=== PATIENT | female | born 1995 | race Caucasian/White ===

== ENCOUNTER 2017-03-08 01:28 | Inpatient (IN) | payer BC ==
[~2017-03-08] VITALS: Ht 165.1 cm; Wt 52.6 kg
[2017-03-08] VITALS (10 sets, daily range): BP systolic 87–134; BP diastolic 38–76
[2017-03-08] MEDS ORDERED: Ketorolac 30mg Inj IV ONE (02:00)
[2017-03-08 02:05] LABS: APPEARANCE,URINE CLEAR; KETONES,URINE 1+ (NEGATIVE); LEUKOCYTE ESTERASE ,URINE 1+ (NEGATIVE); PH,URINE 5 (4.5-8.0); PROTEIN,URINE 1+ (NEGATIVE); UROBILINOGEN,URINE 4 MG/DL (0.0-1.0)
[2017-03-08 02:07] LABS: BASOPHILS % (AUTO) 0.8 % (0.0-2.0); EOSINOPHILS % (AUTO) 1.1 % (0.0-3.0); LYMPHOCYTES % (AUTO) 20.8 % (20.0-45.0); MEAN CORPUSCULAR HEMOGLOBIN 31.5 PG (27.0-31.0); MEAN CORPUSCULAR HGB CONC 33.9 G/DL (32.0-36.0); MEAN CORPUSCULAR VOLUME 93 FL (80-99); MEAN PLATELET VOLUME 7.2 FL (6.5-10.1); MONOCYTES % (AUTO) 7.7 % (1.0-10.0); NEUTROPHILS % (AUTO) 69.6 % (45.0-75.0); PLATELET COUNT 282 K/UL (150-450); RED BLOOD COUNT 3.66 M/UL (4.20-5.40); RED CELL DISTRIBUTION WIDTH 11.2 % (11.6-14.8); WHITE BLOOD COUNT 7.4 K/UL (4.8-10.8)
--- NOTE | 2017-03-08 02:09 | Emergency Room Report ---
History of Present Illness General Chief Complaint: Vomiting Source: Patient Present Illness HPI This is a 21-year-old female with history of recurrent urinary tract infection. She is seen a urologist already. She is currently taking Bactrim prescribed by a urologist. Also using radium. She presents with chief complaint of lower number cramp with vomiting for the last couple days. No fever or chills but now and diarrhea. No back pain. Pain is 5/10. Allergies: Coded Allergies: PROCHLORPERAZINE (Verified Allergy, Unknown, 03/08/17) Patient History Past Medical History: see triage record, old chart reviewed Past Surgical History: none Pertinent Family History: none Social History: Denies: smoking Last Menstrual Period: 2 weeks ago Now: No Immunizations: other Reviewed Nursing Documentation: PMH: Agreed, PSxH: Agreed Review of Systems Eye: Denies: blurred vision, eye pain ENT: Denies: ear pain, nose congestion, throat swelling Respiratory: Denies: cough, shortness of breath Cardiovascular: Denies: chest pain, palpitations Gastrointestinal: Reports: abdominal pain, nausea, vomiting, Denies: diarrhea Musculoskeletal: Denies: back pain, joint pain Skin: Denies: rash Neurological: Denies: headache, numbness Endocrine: Denies: increased thirst, increased urine Hematologic/Lymphatic: Denies: easy bruising All Other Systems: negative except mentioned in HPI Physical Exam Vital Signs Date Time Temp Pulse Resp B/P Pulse Ox O2 Delivery O2 Flow Rate FiO2 03/08/17 01:32 97.9 92 18 116/70 97 vital normal Sp02 EP Interpretation: reviewed, normal General Appearance: well appearing, no apparent distress, alert Head: normocephalic, atraumatic Eyes: bilateral eye EOMI, bilateral eye PERRL ENT: hearing grossly normal, normal pharynx Neck: full range of motion, supple, no meningismus Respiratory: chest non-tender, lungs clear, normal breath sounds Cardiovascular #1: regular rate, rhythm, no murmur Gastrointestinal: normal bowel sounds, non tender, no mass, no organomegaly, no bruit, non-distended Musculoskeletal: back normal, gait/station normal, normal range of motion Psychiatric: mood/affect normal Skin: warm/dry Medical Decision Making Diagnostic Impression: Primary Impression: Vomiting Qualified Codes: R11.2 - Nausea with vomiting, unspecified Additional Impressions: Acute kidney failure Qualified Codes: N17.9 - Acute kidney failure, unspecified UTI (urinary tract infection) Qualified Codes: N30.00 - Acute cystitis without hematuria Anemia Qualified Codes: D64.9 - Anemia, unspecified Proteinuria Qualified Codes: R80.9 - Proteinuria, unspecified ER Course She presents with protracted vomiting. She has acute renal failure. She does have a history of recurrent UTI. Currently taking Bactrim. There still bacteria and possible infection. Is concerning for resistant UTI. We'll switch antibiotic class. She is making urine. Because of the acute renal failure, will admit for hydration and further workup. She is already seen by [facility] [place]. Laboratory Tests Test 03/08/17 01:50 White Blood Count 7.4 K/UL (4.8-10.8) Red Blood Count 3.66 M/UL (4.20-5.40) L Hemoglobin 11.5 G/DL (12.0-16.0) L Hematocrit 34.0 % (37.0-47.0) L Mean Corpuscular Volume 93 FL (80-99) Mean Corpuscular Hemoglobin 31.5 PG (27.0-31.0) H Mean Corpuscular Hemoglobin Concent 33.9 G/DL (32.0-36.0) Red Cell Distribution Width 11.2 % (11.6-14.8) L Platelet Count 282 K/UL (150-450) Mean Platelet Volume 7.2 FL (6.5-10.1) Neutrophils (%) (Auto) 69.6 % (45.0-75.0) Lymphocytes (%) (Auto) 20.8 % (20.0-45.0) Monocytes (%) (Auto) 7.7 % (1.0-10.0) Eosinophils (%) (Auto) 1.1 % (0.0-3.0) Basophils (%) (Auto) 0.8 % (0.0-2.0) Urine Color [place] Urine Appearance Clear Urine pH 5 (4.5-8.0) Urine Specific [place] 1.020 (1.005-1.035) Urine Protein 1+ (NEGATIVE) H Urine Glucose (UA) Negative (NEGATIVE) Urine Ketones 1+ (NEGATIVE) H Urine Occult Blood 1+ (NEGATIVE) H Urine Nitrite Negative (NEGATIVE) Urine Bilirubin 2+ (NEGATIVE) H Urine Ictotest Positive Urine Urobilinogen 4 MG/DL (0.0-1.0) H Urine Leukocyte Esterase 1+ (NEGATIVE) H Urine RBC 0-2 /HPF (0 - 2) Urine WBC 10-15 /HPF (0 - 2) H Urine Squamous Epithelial Cells Many /LPF (NONE/OCC) H Urine Bacteria Few /HPF (NONE) Urine HCG, Qualitative Negative Sodium Level 137 mEQ/L (135-145) Potassium Level 3.9 mEQ/L (3.4-4.9) Chloride Level 95 mEQ/L (98-107) L Carbon Dioxide Level 22 mEQ/L (20-30) Anion Gap 20 (5-15) H Blood Urea Nitrogen 30 mg/dL (7-23) H Creatinine 2.9 mg/dL (0.5-0.9) H Estimat Glomerular Filtration Rate 20.9 mL/min (>60) Glucose Level 96 mg/dL (74-106) Calcium Level 10.1 mg/dL (8.6-10.2) Total Bilirubin 1.0 mg/dL (0.0-1.2) Aspartate Amino Transf (AST/SGOT) 18 U/L (5-40) Alanine Aminotransferase (ALT/SGPT) 9 U/L (3-33) Alkaline Phosphatase 57 U/L (35-104) Total Protein 8.0 g/dL (6.6-8.7) Albumin 4.8 g/dL (3.5-5.2) Globulin 3.2 g/dL Albumin/Globulin Ratio 1.5 (1.0-2.7) Lipase 25 U/L (< 60) Lab Results Impression labs with acute renal failure Last Vital Signs Date Time Temp Pulse Resp B/P Pulse Ox O2 Delivery O2 Flow Rate FiO2 03/08/17 01:32 97.9 92 18 116/70 97 Status: improved Disposition: ADMITTED INPATIENT Condition: Serious CHARY ETIENNE M.D. Mar 08, 2017 02:09
[2017-03-08 02:13] LABS: NITRITE,URINE NEGATIVE (NEGATIVE)
[2017-03-08 02:14] LABS: BACTERIA,URINE FEW /HPF; RBC,URINE 0-2 /HPF (0 - 2); SQUAMOUS EPITHELIAL CELL,UR MANY /LPF (NONE/OCC)
[2017-03-08 02:15] LABS: ICTOTEST POSITIVE
[2017-03-08 02:18] LABS: ALBUMIN/GLOBULIN RATIO 1.5 (1.0-2.7); CALCIUM 10.1 mg/dL (8.6-10.2); CREATININE 2.9 mg/dL (0.5-0.9); GLOMERULAR FILTRATION RATE 20.9 mL/min (>60); POTASSIUM 3.9 mEQ/L (3.4-4.9)
[2017-03-08] MEDS ORDERED: cefTRIAXone 1 GM in NS 55 ML IVPB ONE (02:30)
[2017-03-08] MEDS ORDERED: Morphine Sulfate 4mg/ml Inj IVP PRN (11:00)
--- NOTE | 2017-03-08 11:00 | History & Physical ---
History and Physical History & Physicial Dictated for Int Med-Dr Rodriguez no. [id number]. TERESA SETH Mar 08, 2017 11:00
[2017-03-08] MEDS ORDERED: Morphine Sulfate 2mg/ml Inj IVP PRN (11:15)
--- NOTE | 2017-03-08 11:30 | Consultation ---
Consult Note Assessment/Plan Renal consult dictated # [id number] KATHY FINN Mar 08, 2017 11:30
--- NOTE | 2017-03-08 17:18 | History and Physical Report ---
DATE OF ADMISSION: 03/08/2017 CHIEF COMPLAINT: The patient is a 21-year-old white female, presents with complaint of intractable nausea and vomiting. HISTORY OF PRESENT ILLNESS: The patient was seen by Urology on , 03/04/2017. The patient was diagnosed with a urinary tract infection. The patient was given Bactrim double strength one tablet p.o. twice daily. The patient was also given Zofran for nausea and vomiting. The patient states nausea and vomiting has not resolved. The patient is unable to tolerate liquids or solids. The patient also complains of some diarrhea. The patient presented to [facility]. The patient is admitted for urinary tract infection, nausea, vomiting, and pyelonephritis. PAST MEDICAL HISTORY: The patient states her last menstrual period was two weeks ago. PAST SURGICAL HISTORY: Significant for nasal rhinoplasty. MEDICATIONS: Current medications 1. Bactrim double strength one tablet p.o. twice daily since 03/04/2017. 2. Zofran p.r.n. 3. Advil p.r.n. ALLERGIES: Compazine. SOCIAL HISTORY: The patient has a long-term boyfriend. The patient denies tobacco use. The patient has rare alcohol use. The patient is a student in [employer]. FAMILY HISTORY: Negative for diabetes or coronary artery disease. REVIEW OF SYSTEMS: Constitutional: The patient denies weight loss or weight gain. The patient complains of subjective fevers and chills. HEENT: The patient denies ear or throat pain. The patient denies headache. Cardiovascular: The patient denies palpitations or chest pain. Chest: The patient denies wheezing or shortness of breath. Abdomen: The patient complains of bilateral lower quadrant pain. The patient complains of nausea with vomiting as above. The patient complains of loose stools. The patient denies constipation. Genitourinary: The patient denies dysuria or increased frequency of urination. Neuromuscular: The patient denies seizures or generalized weakness. PHYSICAL EXAMINATION: VITAL SIGNS: Temperature 98.0 degrees, respirations 17, pulse 78, and blood pressure 112/76. GENERAL: The patient is a well-developed and well-nourished thin-appearing white female, in no apparent distress. HEENT: Eyes, pupils are equal and responsive to light and accommodation. Extraocular movements are intact. NECK: Supple without lymphadenopathy. CHEST: Lungs are clear auscultation bilaterally without wheezes or rales. CARDIOVASCULAR: Regular rhythm and rate. S1 and S2 normal. No murmurs, rubs, or gallops. ABDOMEN: Soft and nondistended. Positive bowel sounds. There is tenderness to palpation to bilateral lower quadrants. There is no rebound or guarding. EXTREMITIES: No clubbing, cyanosis, or edema. RECTAL: Refused. GENITAL: Refused. NEUROLOGIC: Cranial nerves II through XII are grossly intact without focal deficits. Motor strength is 5/5 bilaterally. Deep tendon reflexes are 2+ plantar. LABORATORY AND DIAGNOSTIC DATA: WBC 7.4, hemoglobin 11.5, hematocrit 34.0, and platelets 292,000. Sodium 137, potassium 3.9, chloride 95, CO2 22, BUN 38, creatinine 2.9 and glucose 96. Urinalysis showed 1+ ketones, 1+ occult blood, and 2+ bilirubin, leukocyte esterase 1+, and nitrite negative with 10-15 WBC. ASSESSMENT: This is a 21-year-old white female 1. Nausea with vomiting. 2. Abdominal pain. 3. Diarrhea. 4. Renal failure. 5. Urinary tract infection. 6. Probable pyelonephritis. TREATMENT: 1. Renal failure. A Nephrology consultation was obtained with Dr. Chidi Salvador. A renal ultrasound is pending. Renal failure may be secondary to Bactrim for pyelonephritis. We will follow recommendations of Nephrology. 2. Urinary tract infection. Urine culture is pending. The patient has been started empirically on ceftriaxone. We will follow recommendations of Infectious Disease, Dr. Emanuel. 3. Nausea with vomiting. The patient is currently receiving Zofran intravenously. The patient is currently on intravenous fluids. 4. Dehydration. The patient is currently on intravenous fluids as above. Ryley Mirza M.D. DR: WHITNEY JOB#: [id number] CC:
[2017-03-08] MEDS ORDERED: Trimethobenzamide 100mg/ml vial IM PRN (18:00)
--- NOTE | 2017-03-08 18:08 | Consultation ---
DATE OF CONSULTATION: 03/08/2017 NEPHROLOGY CONSULTATION CONSULTING PHYSICIAN: Chidi Salvador M.D. REFERRING PHYSICIAN: Jesús Mar M.D. REASON FOR CONSULTATION: Acute renal failure. HISTORY OF PRESENT ILLNESS: This is a very pleasant, 21-year-old female with a history of recurrent urinary tract infection. The patient said that she has had about seven UTIs since March of last year. She stated that the UTI started after she got into a relationship with a boyfriend and it usually happens when she has intercourse. She had also once "kidney infection," which was treated at an urgent care clinic with IV antibiotics, but she did not require hospitalization. For the past three days, she has had symptoms of urgency, frequency, and dysuria and was prescribed Bactrim by urologist, however, it did not work and she still had complaints, especially she had nausea and vomiting to the degree where she cannot keep anything down. So, she came to the emergency room and was admitted. She was found to have a BUN of 30 and creatinine 2.9 upon admission. She denies previous history of the kidney problems except the kidney infection. PAST MEDICAL HISTORY: As above. SOCIAL HISTORY: The patient lives with a boyfriend. No history of smoking or alcohol abuse. ALLERGIES: Compazine (the patient is intolerant, getting panic attacks). REVIEW OF SYSTEMS: Noncontributory except what was mentioned. PHYSICAL EXAMINATION: GENERAL: The patient is a 21-year-old female, in no acute distress. VITAL SIGNS: Blood pressure is 87/38, pulse 76, temperature 97.9, and respiratory rate is 18. HEENT: [place] conjunctivae. Anicteric sclerae. NECK: Supple. LUNGS: Clear to auscultation. HEART: S1 and S2 without murmurs or rubs. ABDOMEN: Soft and nontender. The patient has some mild CVA tenderness on the right side. EXTREMITIES: No cyanosis or edema. LABORATORY FINDINGS: The CBC shows WBC of 7.4, hematocrit 34, hemoglobin 11.5, and platelets 282,000. Chemistry panel shows serum sodium of 137, potassium 3.9, chloride 95, CO2 22, BUN is 30, and creatinine 2.9. Albumin is 4.8. UA shows 1+ protein, 10 to 15 WBCs per high-power field. ASSESSMENT: This is a 21-year-old female who was admitted with urinary tract infection, intractable nausea and vomiting. Acute renal failure is likely as a result of prerenal azotemia. However, she is running low blood pressure. So, acute tubular necrosis is a possibility as well. Finally, we have to make sure the patient does not have any structural abnormality of her kidneys and obstruction needs to be ruled out as well. PLAN: The patient will be hydrated aggressively with IV normal saline. A spot urine sodium and spot urine creatinine will be obtained to calculate the fractional excretion of sodium. A renal ultrasound will be ordered to rule out obstruction. I will follow chemistry panel closely and make further recommendations based on those results. Thank you very much, Dr. mar, for this consultation. Chidi Salvador M.D. DR: HEAVEN JOB#: [id number] CC: GREGORY
[2017-03-08] MEDS ORDERED: HYDROmorphone 1mg/ml Carpuject IVP PRN (18:15)
[2017-03-08 18:33] LABS: CREATININE, RANDOM URINE 90.9 mg/dL
--- NOTE | 2017-03-08 21:28 | Consultation ---
DATE OF CONSULTATION: 03/08/2017 INFECTIOUS DISEASE CONSULTATION CONSULTING PHYSICIAN: Cailin Emanuel M.D. ATTENDING PHYSICIAN: Jesús Rodriguez M.D. REFERRING PHYSICIAN: Ryley Mirza M.D. I was asked by Dr. Mirza to see this patient. I believe he is covering for Dr. Rodriguez. REASON FOR CONSULTATION: Pyelonephritis and UTI. PATIENT'S CHIEF COMPLAINT COMING INTO THE HOSPITAL: Urinary tract infection and pyelonephritis. HISTORY OF PRESENT ILLNESS: This is a very pleasant 21-year-old female who has a history of urinary tract infections and usually sounds like she had been treated with Bactrim in the past with success. However, she presents now with about a week of dysuria and frequency and urgency and left CVA tenderness. She has some abdominal discomfort also in the mid and lower abdomen. The patient's urinalysis is significantly positive for consistent with urinary tract infection. Urine culture is pending. She has been started on IV Rocephin with improvement in symptoms less than 24 hours ago. Infectious Disease consultation was requested with antibiotic management of this patient. MAR was noted. Orders were noted. Notes reviewed. REVIEW OF SYSTEMS: Constitutional: She denies fevers, chills, night sweats, or weight loss. Head and Neck: No thrush or dysphagia. Cardiac: No chest pain. Gastrointestinal: No nausea or vomiting. She has abdominal discomfort in the mid and lower abdomen. Genitourinary: She had dysuria and frequency. Skin: No rash or itching. Extremities: No extremity pain. Neurologic: No seizures. Pulmonary: No congestion or shortness of breath. PAST MEDICAL HISTORY: History of urinary tract infections in the past, however, no other past medical history such as diabetes or hypertension. ALLERGIES: Prochlorperazine. FAMILY HISTORY: Noncontributory. SOCIAL HISTORY: Negative for smoking, alcohol, or drug abuse. MEDICATIONS: Upon reviewing the MAR, the patient is on the following medications. She is on Rocephin, morphine, IV fluids, sodium, Tylenol, and Zofran. Please see medications and past medical history in medical order. PHYSICAL EXAMINATION: VITAL SIGNS: Temperature is 97.9, pulse rate 76, respiratory rate 18, and blood pressure 87/38. GENERAL: Alert, responsive, in no acute distress. She is oriented x3. HEAD AND NECK: Oral exam, no thrush. Eye exam, no icterus. Neck is supple. Normocephalic. No facial droop. HEART: Regular. No gallop or murmur. No friction rub. ABDOMEN: Soft. Positive bowel sounds. Some discomfort, but no rebound. LUNGS: Clear bilaterally. No rhonchi or rales. SKIN: No rash or dermatitis. MUSCULOSKELETAL: No evidence of septic arthritis or effusions. Lower extremities without cellulitis . EXTREMITIES: Without cyanosis. GENITOURINARY: She has no [place]. She has left-sided CVA tenderness. LINES: Line sites are without phlebitis. NEUROLOGIC: Intact. Nonfocal. Alert and oriented x3. LABORATORY DATA: White count 7.4 and hemoglobin 11.5. The patient's creatinine is 2.9. LFTs are unremarkable. BUN is elevated at 30. Urinalysis, she had 2+ bilirubin, she had 10 to 15 white blood cells, and she had positive bacteria, but only a few. Urine hCG was negative. Urine culture is pending. ASSESSMENT AND PLAN: 1. The patient has likely pyelonephritis with left costovertebral angle tenderness and also, of course, urinary tract infection. The patient will be continued on Rocephin. Her symptoms have really improved. Continue Rocephin. Check urine culture results. The patient was on Bactrim prior to this admission and it did not improve her symptoms. At this time, we will continue Rocephin, check urine cultures, and check followup labs. 2. Avoid nephrotoxic drugs. The patient is in acute renal failure, likely secondary to prerenal syndrome and dehydration. 3. History of urinary tract infections. 4. Continue treatment per primary consultants including Nephrology. 5. Allergies to prochlorperazine. 6. MAR was noted. 7. Notes are reviewed. 8. Case discussed with RN. 9. Case discussed with the patient. 10. Social history and family history are unremarkable. Cailin Emanuel M.D. DR: ARSALAN JOB#: [id number] CC: Jesús Rodriguez MD
[2017-03-09] VITALS: BP 114/52
[2017-03-09] MEDS: cefTRIAXone 1 GM in NS 55 ML IVPB SCH (02:35)
[2017-03-09 04:00] VITALS: BP 100/60
[2017-03-09 06:52] LABS: BASOPHILS % (AUTO) 1.2 % (0.0-2.0); LYMPHOCYTES % (AUTO) 54.1 % (20.0-45.0); MEAN CORPUSCULAR VOLUME 97 FL (80-99); MEAN PLATELET VOLUME 7.6 FL (6.5-10.1); MONOCYTES % (AUTO) 7.6 % (1.0-10.0); NEUTROPHILS % (AUTO) 35.1 % (45.0-75.0); PLATELET COUNT 202 K/UL (150-450); RED BLOOD COUNT 2.98 M/UL (4.20-5.40); RED CELL DISTRIBUTION WIDTH 11.8 % (11.6-14.8); WHITE BLOOD COUNT 5.7 K/UL (4.8-10.8)
[2017-03-09 07:01] LABS: CALCIUM 8.9 mg/dL (8.6-10.2); CREATININE 1.2 mg/dL (0.5-0.9); GLOMERULAR FILTRATION RATE 57.9 mL/min (>60); POTASSIUM 4.3 mEQ/L (3.4-4.9)
[2017-03-09 08:00] VITALS: BP 105/67
[2017-03-09] MEDS ORDERED: Norco 10mg/325mg tab ORAL PRN (10:00)
[2017-03-09 12:37] VITALS: BP 103/67
--- NOTE | 2017-03-09 15:54 | Nephrology Progress Note ---
Assessment/Plan Problem List: (1) Acute kidney failure Assessment: Improved (2) Vomiting (3) UTI (urinary tract infection) (4) Anemia Plan IVF abxs Iron panel GI consult Discussed with pt and family at length check renal US Subjective Subjective still vomiting Objective Objective Last 24 Hour Vital Signs Date Time Temp Pulse Resp B/P Pulse Ox O2 Delivery O2 Flow Rate FiO2 03/09/17 12:37 97.7 20 103/67 100 Room Air 03/09/17 11:22 97.5 03/09/17 08:00 97.5 18 105/67 98 Room Air 03/09/17 04:00 97.7 72 18 100/60 97 Room Air 03/09/17 00:00 98.1 72 18 114/52 97 Room Air 03/08/17 22:00 98.1 81 18 123/68 95 Room Air 03/08/17 20:00 98.1 81 18 123/68 95 Room Air 03/08/17 16:02 97.7 74 18 134/55 98 Intake and Output 03/08/17 03/09/17 19:00 07:00 Intake Total 480 ml 1310 ml Balance 480 ml 1310 ml Intake Oral 480 ml IV Total 1310 ml # Voids 2 Laboratory Tests 03/09/17 05:50: White Blood Count 5.7, Red Blood Count 2.98L, Hemoglobin 9.5L, Hematocrit 28.8L , Mean Corpuscular Volume 97, Mean Corpuscular Hemoglobin 32.0H, Mean Corpuscular Hemoglobin Concent 33.0, Red Cell Distribution Width 11.8, Platelet Count 202, Mean Platelet Volume 7.6, Neutrophils (%) (Auto) 35.1L, Lymphocytes ( %) (Auto) 54.1H, Monocytes (%) (Auto) 7.6, Eosinophils (%) (Auto) 2.0, Basophils (%) (Auto) 1.2, Sodium Level 142, Potassium Level 4.3, Chloride Level 107, Carbon Dioxide Level 22, Anion Gap 13, Blood Urea Nitrogen 11, Creatinine 1.2#H, Estimat Glomerular Filtration Rate 57.9, Glucose Level 71L, Calcium Level 8.9 Height (Feet): 5 Height (Inches): 5.00 Weight (Pounds): 116 Cardiovascular: normal rate Respiratory/Chest: lungs clear Abdomen: other - still with L CVA tenderness RAHBAN,KATHY Mar 09, 2017 15:54
[2017-03-09 16:11] VITALS: BP 115/58
--- NOTE | 2017-03-09 16:43 | Internal Med Progress Note ---
Subjective Date of Service: Mar 09, 2017 Physician Name Ryley Seth Attending Physician Jesús Rodriguez M.D. Current Medications Medications (Trade) Dose Ordered Sig/Tyson Route PRN Reason Start Time Stop Time Status Last Admin Dose Admin Acetaminophen (Tylenol) 650 mg Q4H PRN ORAL Mild Pain (Pain Scale 1-3) 03/08/17 03:30 04/07/17 03:29 03/08/17 23:54 Acetaminophen/ Hydrocodone Bitart (M[place] ) 1 ea Q4H PRN ORAL Pain 4-10 03/09/17 10:00 03/16/17 09:59 03/09/17 10:23 Ceftriaxone Sodium 1 gm/ Sodium Chloride 55 ml @ 110 mls/hr Q24H IVPB 03/09/17 02:30 03/16/17 02:29 03/09/17 02:35 Dextrose STAT PRN IV Hypoglycemia 03/08/17 03:30 04/07/17 03:29 Ondansetron HCl (Zofran) 4 mg Q4H PRN IVP Nausea & Vomiting 03/08/17 03:30 04/07/17 03:29 03/08/17 17:10 Sodium Chloride (Sodium Chloride 1000ml bag) 1,000 ml @ 150 mls/hr Q6H40M IV 03/08/17 11:00 04/07/17 10:59 03/09/17 09:31 Trimethobenzamide HCl (Tigan) 200 mg Q6HR PRN IM Nausea & Vomiting 03/08/17 18:00 04/07/17 17:59 Allergies: Coded Allergies: PROCHLORPERAZINE (Verified Allergy, Unknown, 03/08/17) ROS Limited/Unobtainable: No Constitutional: Reports: no symptoms HEENT: Reports: no symptoms Cardiovascular: Reports: no symptoms Respiratory: Reports: no symptoms Gastrointestinal/Abdominal: Reports: nausea, vomiting Genitourinary: Reports: no symptoms Neurologic/Psychiatric: Reports: no symptoms Subjective 21 YO F admitted with abdominal pain and urinary tract infection. Now pyelonephritis, renal failure and intractable nausea. Cover for Int Med-Dr Rodriguez. Objective Last Vital Signs Date Time Temp Pulse Resp B/P Pulse Ox O2 Delivery O2 Flow Rate FiO2 03/09/17 16:11 98.1 18 115/58 97 Room Air 03/09/17 04:00 72 Laboratory Tests Test 03/09/17 05:50 White Blood Count 5.7 K/UL (4.8-10.8) Red Blood Count 2.98 M/UL (4.20-5.40) L Hemoglobin 9.5 G/DL (12.0-16.0) L Hematocrit 28.8 % (37.0-47.0) L Mean Corpuscular Volume 97 FL (80-99) Mean Corpuscular Hemoglobin 32.0 PG (27.0-31.0) H Mean Corpuscular Hemoglobin Concent 33.0 G/DL (32.0-36.0) Red Cell Distribution Width 11.8 % (11.6-14.8) Platelet Count 202 K/UL (150-450) Mean Platelet Volume 7.6 FL (6.5-10.1) Neutrophils (%) (Auto) 35.1 % (45.0-75.0) L Lymphocytes (%) (Auto) 54.1 % (20.0-45.0) H Monocytes (%) (Auto) 7.6 % (1.0-10.0) Eosinophils (%) (Auto) 2.0 % (0.0-3.0) Basophils (%) (Auto) 1.2 % (0.0-2.0) Sodium Level 142 mEQ/L (135-145) Potassium Level 4.3 mEQ/L (3.4-4.9) Chloride Level 107 mEQ/L (98-107) Carbon Dioxide Level 22 mEQ/L (20-30) Anion Gap 13 (5-15) Blood Urea Nitrogen 11 mg/dL (7-23) Creatinine 1.2 mg/dL (0.5-0.9) #H Estimat Glomerular Filtration Rate 57.9 mL/min (>60) Glucose Level 71 mg/dL (74-106) L Calcium Level 8.9 mg/dL (8.6-10.2) Microbiology Date/Time Source Procedure Growth Status 03/08/17 01:50 Urine,Clean Catch Urine Culture - Preliminary NO GROWTH AFTER 24 HOURS Resulted Intake and Output 03/08/17 03/09/17 19:00 07:00 Intake Total 480 ml 1310 ml Balance 480 ml 1310 ml Intake Oral 480 ml IV Total 1310 ml # Voids 2 Objective General: alert, cooperative, no distress, appears stated age Head: normocephalic, without obvious abnormality, atraumatic Eyes: conjunctivae/corneas clear. PERRL, EOM's intact Throat: lips, mucosa, and tongue normal. MMM Neck: supple, symmetrical, trachea midline, and no JVD Lungs: clear to auscultation bilaterally Heart: regular rate and rhythm, S1, S2 normal, no murmur, click, rub or gallop Abdomen: soft, tender to palp, non-distended, bowel sounds normal; no masses or organomegaly Extremities: extremities normal, atraumatic, no cyanosis or edema Pulses: 2+ and symmetric Skin: skin color, texture, turgor normal; no rashes or lesions Neurologic: grossly normal, no focal deficits Assessment/Plan Problem List: (1) Abdominal pain (2) Nausea & vomiting Assessment & Plan: Intractable. Previously on zofran and phenergan. Allergic to compazine. Tigan not effective. Await GI consult. (3) Diarrhea (4) Renal failure Assessment & Plan: Dehydration vs ATN. Improving on IV fluids. See nephrology note. Ultrasound not functioning today-await renal ultrasoud. (5) Pyelonephritis Assessment & Plan: See ID note. Continue ceftriaxone. (6) Dehydration (7) UTI (urinary tract infection) Assessment & Plan: Urine culture = no growth Status: not improved RYLEY SETH Mar 09, 2017 16:43
[2017-03-09 20:00] VITALS: BP 115/62
[2017-03-10] VITALS: BP 122/69
[2017-03-10] MEDS: cefTRIAXone 1 GM in NS 55 ML IVPB SCH (02:10)
[2017-03-10 04:00] VITALS: BP 110/62
[2017-03-10 07:19] LABS: BASOPHILS % (AUTO) 0.9 % (0.0-2.0); LYMPHOCYTES % (AUTO) 48.8 % (20.0-45.0); MEAN CORPUSCULAR HEMOGLOBIN 31.7 PG (27.0-31.0); MEAN CORPUSCULAR HGB CONC 33.5 G/DL (32.0-36.0); MEAN CORPUSCULAR VOLUME 95 FL (80-99); MEAN PLATELET VOLUME 7.6 FL (6.5-10.1); MONOCYTES % (AUTO) 5.8 % (1.0-10.0); NEUTROPHILS % (AUTO) 42.4 % (45.0-75.0); PLATELET COUNT 201 K/UL (150-450); RED BLOOD COUNT 2.91 M/UL (4.20-5.40); RED CELL DISTRIBUTION WIDTH 11.1 % (11.6-14.8); WHITE BLOOD COUNT 5.9 K/UL (4.8-10.8)
[2017-03-10 07:23] LABS: ANION GAP 13 (5-15); CALCIUM 8.2 mg/dL (8.6-10.2); CARBON DIOXIDE 21 mEQ/L (20-30); CHLORIDE 105 mEQ/L (98-107); CREATININE 0.7 mg/dL (0.5-0.9); GLOMERULAR FILTRATION RATE > 60 mL/min (>60); HEMOLYSIS 5; POTASSIUM 3.6 mEQ/L (3.4-4.9); SODIUM 139 mEQ/L (135-145)
[2017-03-10 07:42] VITALS: BP 103/54
[2017-03-10 08:03] LABS: HEMOLYSIS 3; IRON 105 ug/dL (37-145); TOTAL IRON BINDING CAPACITY 174 ug/dL (250-400)
[2017-03-10 12:00] VITALS: BP 126/73
--- NOTE | 2017-03-10 12:06 | Internal Med Progress Note ---
Subjective Date of Service: Mar 10, 2017 Physician Name Ryley Seth Attending Physician Jesús Rodriguez M.D. Current Medications Medications (Trade) Dose Ordered Sig/Tyson Route PRN Reason Start Time Stop Time Status Last Admin Dose Admin Acetaminophen (Tylenol) 650 mg Q4H PRN ORAL Mild Pain (Pain Scale 1-3) 03/08/17 03:30 04/07/17 03:29 03/08/17 23:54 Acetaminophen/ Hydrocodone Bitart ([place] ) 1 ea Q4H PRN ORAL Pain 4-10 03/09/17 10:00 03/16/17 09:59 03/09/17 10:23 Ceftriaxone Sodium 1 gm/ Sodium Chloride 55 ml @ 110 mls/hr Q24H IVPB 03/09/17 02:30 03/16/17 02:29 03/10/17 02:10 Dextrose STAT PRN IV Hypoglycemia 03/08/17 03:30 04/07/17 03:29 Ondansetron HCl (Zofran) 4 mg Q4H PRN IVP Nausea & Vomiting 03/08/17 03:30 04/07/17 03:29 03/08/17 17:10 Sodium Chloride (Sodium Chloride 1000ml bag) 1,000 ml @ 150 mls/hr Q6H40M IV 03/08/17 11:00 04/07/17 10:59 03/10/17 11:10 Trimethobenzamide HCl (Tigan) 200 mg Q6HR PRN IM Nausea & Vomiting 03/08/17 18:00 04/07/17 17:59 Allergies: Coded Allergies: PROCHLORPERAZINE (Verified Allergy, Unknown, 03/08/17) ROS Limited/Unobtainable: No Constitutional: Reports: no symptoms HEENT: Reports: no symptoms Cardiovascular: Reports: no symptoms Respiratory: Reports: no symptoms Gastrointestinal/Abdominal: Reports: no symptoms Genitourinary: Reports: no symptoms Neurologic/Psychiatric: Reports: no symptoms Subjective 21 YO F admitted with abdominal pain and urinary tract infection. Now pyelonephritis, renal failure and intractable nausea. Cover for Int Med-Dr Rodriguez. Objective Last Vital Signs Date Time Temp Pulse Resp B/P Pulse Ox O2 Delivery O2 Flow Rate FiO2 03/10/17 07:42 97.7 61 20 103/54 93 Room Air Laboratory Tests Test 03/10/17 05:20 White Blood Count 5.9 K/UL (4.8-10.8) Red Blood Count 2.91 M/UL (4.20-5.40) L Hemoglobin 9.2 G/DL (12.0-16.0) L Hematocrit 27.6 % (37.0-47.0) L Mean Corpuscular Volume 95 FL (80-99) Mean Corpuscular Hemoglobin 31.7 PG (27.0-31.0) H Mean Corpuscular Hemoglobin Concent 33.5 G/DL (32.0-36.0) Red Cell Distribution Width 11.1 % (11.6-14.8) L Platelet Count 201 K/UL (150-450) Mean Platelet Volume 7.6 FL (6.5-10.1) Neutrophils (%) (Auto) 42.4 % (45.0-75.0) L Lymphocytes (%) (Auto) 48.8 % (20.0-45.0) H Monocytes (%) (Auto) 5.8 % (1.0-10.0) Eosinophils (%) (Auto) 2.0 % (0.0-3.0) Basophils (%) (Auto) 0.9 % (0.0-2.0) Sodium Level 139 mEQ/L (135-145) Potassium Level 3.6 mEQ/L (3.4-4.9) Chloride Level 105 mEQ/L (98-107) Carbon Dioxide Level 21 mEQ/L (20-30) Anion Gap 13 (5-15) Blood Urea Nitrogen 6 mg/dL (7-23) L Creatinine 0.7 mg/dL (0.5-0.9) Estimat Glomerular Filtration Rate > 60 mL/min (>60) Glucose Level 75 mg/dL (74-106) Calcium Level 8.2 mg/dL (8.6-10.2) L Iron Level 105 ug/dL (37-145) Total Iron Binding Capacity 174 ug/dL (250-400) L Percent Iron Saturation 60 % (15-50) H Unsaturated Iron Binding 69 ug/dL (112-346) L Microbiology Date/Time Source Procedure Growth Status 03/08/17 01:50 Urine,Clean Catch Urine Culture - Final NO GROWTH AFTER 48 HOURS Complete Intake and Output 03/09/17 03/10/17 19:00 07:00 Intake Total 1837.5 ml 2005 ml Output Total 50 ml Balance 1787.5 ml 2005 ml Intake Oral 300 ml 150 ml IV Total 1537.5 ml 1855 ml Output Emesis 50 ml # Voids 2 3 Objective General: alert, cooperative, no distress, appears stated age Head: normocephalic, without obvious abnormality, atraumatic Eyes: conjunctivae/corneas clear. PERRL, EOM's intact Throat: lips, mucosa, and tongue normal. MMM Neck: supple, symmetrical, trachea midline, and no JVD Lungs: clear to auscultation bilaterally Heart: regular rate and rhythm, S1, S2 normal, no murmur, click, rub or gallop Abdomen: soft, tender to palp, non-distended, bowel sounds normal; no masses or organomegaly Extremities: extremities normal, atraumatic, no cyanosis or edema Pulses: 2+ and symmetric Skin: skin color, texture, turgor normal; no rashes or lesions Neurologic: grossly normal, no focal deficits Assessment/Plan Problem List: (1) Abdominal pain (2) Nausea & vomiting Assessment & Plan: Intractable. Previously on zofran and phenergan. Allergic to compazine. Tigan not effective. Await GI consult. (3) Diarrhea (4) Renal failure Assessment & Plan: Dehydration vs ATN. Improving on IV fluids. See nephrology note. Ultrasound not functioning today-await renal ultrasoud. (5) Pyelonephritis Assessment & Plan: See ID note. Continue ceftriaxone. (6) Dehydration (7) UTI (urinary tract infection) Assessment & Plan: Urine culture = no growth Status: stable Assessment/Plan discharge home today. F/U primary care physician in 1 week. RYLEY SETH Mar 10, 2017 12:06
--- NOTE | 2017-03-10 12:49 | Infectious Diseases Prog Note ---
Assessment/Plan Assessment/Plan ASSESSMENT AND PLAN: 1. uti/pyelonephritis - clinically better, less cva tenderness - urine culture negative but on previous abx - limited choices since patient had gustavo/arf possibly secondary to bactrim and patient gets severe migraines with cipro and does not want to take it - will give ceftin 500 mg bid for another 10 days to complete full abx course - told patient to call me if urinary symptoms worsen 2. arf/gustavo - resolved, ? bactrim, ? dehydration 3. History of urinary tract infections. 4. Continue treatment per primary consultants including Nephrology. 5. Allergies to prochlorperazine. 6. MAR was noted. 7. Notes are reviewed. 8. Case discussed with RN. 9. Case discussed with the patient. 10. Social history and family history are unremarkable. 11. case d/w Dr. Mirza Subjective Constitutional: Denies: fatigue, fever HEENT: Denies: congestion Respiratory: Denies: shortness of breath Cardiovascular: Denies: chest pain Gastrointestinal/Abdominal: Denies: diarrhea, nausea, vomiting Genitourinary: Reports: other - urine symptoms much improved, Denies: dysuria, frequency Neurologic: Denies: headache Psychiatric: Denies: depression Skin: Denies: rash Hematologic: Denies: bleeding Musculoskeletal: Denies: pain Allergies: Coded Allergies: PROCHLORPERAZINE (Verified Allergy, Unknown, 03/08/17) Objective Vital Signs Last 24 Hour Vital Signs Date Time Temp Pulse Resp B/P Pulse Ox O2 Delivery O2 Flow Rate FiO2 03/10/17 12:00 97.3 57 20 126/73 98 Room Air 03/10/17 07:42 97.7 61 20 103/54 93 Room Air 03/10/17 04:00 97.9 63 20 110/62 97 Room Air 03/10/17 00:00 98.9 72 20 122/69 98 03/09/17 20:00 98.1 95 18 115/62 97 Room Air 03/09/17 16:11 98.1 18 115/58 97 Room Air Height (Feet): 5 Height (Inches): 5.00 Weight (Pounds): 116 General Appearance: no acute distress HEENT: normocephalic, atraumatic, anicteric, mucous membranes moist, PERRL, pharynx normal, supple, no JVD Respiratory/Chest: lungs clear, normal breath sounds, no respiratory distress, no accessory muscle use Cardiovascular: normal rate, regular rhythm, no gallop/murmur, no JVD Abdomen: normal bowel sounds, soft, non tender, no organomegaly, non distended Genitourinary: other - less left cva pain Extremities: no cyanosis Skin: no rash Neurologic/Psychiatric: outreach liaison II-XII grossly normal, alert, oriented x 3, responsive Lymphatic: no neck adenopathy Musculoskeletal: no effusion Objective none Microbiology Date/Time Source Procedure Growth Status 03/08/17 01:50 Urine,Clean Catch Urine Culture - Final NO GROWTH AFTER 48 HOURS Complete Laboratory Tests Test 03/10/17 05:20 White Blood Count 5.9 K/UL (4.8-10.8) Red Blood Count 2.91 M/UL (4.20-5.40) L Hemoglobin 9.2 G/DL (12.0-16.0) L Hematocrit 27.6 % (37.0-47.0) L Mean Corpuscular Volume 95 FL (80-99) Mean Corpuscular Hemoglobin 31.7 PG (27.0-31.0) H Mean Corpuscular Hemoglobin Concent 33.5 G/DL (32.0-36.0) Red Cell Distribution Width 11.1 % (11.6-14.8) L Platelet Count 201 K/UL (150-450) Mean Platelet Volume 7.6 FL (6.5-10.1) Neutrophils (%) (Auto) 42.4 % (45.0-75.0) L Lymphocytes (%) (Auto) 48.8 % (20.0-45.0) H Monocytes (%) (Auto) 5.8 % (1.0-10.0) Eosinophils (%) (Auto) 2.0 % (0.0-3.0) Basophils (%) (Auto) 0.9 % (0.0-2.0) Sodium Level 139 mEQ/L (135-145) Potassium Level 3.6 mEQ/L (3.4-4.9) Chloride Level 105 mEQ/L (98-107) Carbon Dioxide Level 21 mEQ/L (20-30) Anion Gap 13 (5-15) Blood Urea Nitrogen 6 mg/dL (7-23) L Creatinine 0.7 mg/dL (0.5-0.9) Estimat Glomerular Filtration Rate > 60 mL/min (>60) Glucose Level 75 mg/dL (74-106) Calcium Level 8.2 mg/dL (8.6-10.2) L Iron Level 105 ug/dL (37-145) Total Iron Binding Capacity 174 ug/dL (250-400) L Percent Iron Saturation 60 % (15-50) H Unsaturated Iron Binding 69 ug/dL (112-346) L Current Medications Medications (Trade) Dose Ordered Sig/Tyson Route PRN Reason Start Time Stop Time Status Last Admin Dose Admin Acetaminophen (Tylenol) 650 mg Q4H PRN ORAL Mild Pain (Pain Scale 1-3) 03/08/17 03:30 04/07/17 03:29 03/08/17 23:54 Acetaminophen/ Hydrocodone Bitart ([place] ) 1 ea Q4H PRN ORAL Pain 4-03/09/17 10:00 03/16/17 09:59 03/09/17 10:23 Ceftriaxone Sodium 1 gm/ Sodium Chloride 55 ml @ 110 mls/hr Q24H IVPB 03/09/17 02:30 03/16/17 02:29 03/10/17 02:10 Dextrose STAT PRN IV Hypoglycemia 03/08/17 03:30 04/07/17 03:29 Ondansetron HCl (Zofran) 4 mg Q4H PRN IVP Nausea & Vomiting 03/08/17 03:30 04/07/17 03:29 03/08/17 17:10 Sodium Chloride (Sodium Chloride 1000ml bag) 1,000 ml @ 150 mls/hr Q6H40M IV 03/08/17 11:00 04/07/17 10:59 03/10/17 11:10 Trimethobenzamide HCl (Tigan) 200 mg Q6HR PRN IM Nausea & Vomiting 03/08/17 18:00 04/07/17 17:59 AGUS CAT Mar 10, 2017 12:49
[2017-03-10] MEDS ORDERED: cefTRIAXone 1 GM in NS 55 ML IVPB SCH (13:00)
[2017-03-10] MEDS ORDERED: CEFTIN250 MG/5 M PO (13:42)
--- NOTE | 2017-03-10 16:06 | Nephrology Progress Note ---
Assessment/Plan Problem List: (1) Acute kidney failure Assessment: resolved (2) Vomiting (3) UTI (urinary tract infection) (4) Anemia Assessment: no iron def Plan DC IVF abxs Discussed with pt and father Subjective Subjective feels better eating Objective Objective Last 24 Hour Vital Signs Date Time Temp Pulse Resp B/P Pulse Ox O2 Delivery O2 Flow Rate FiO2 03/10/17 12:00 97.3 57 20 126/73 98 Room Air 03/10/17 07:42 97.7 61 20 103/54 93 Room Air 03/10/17 04:00 97.9 63 20 110/62 97 Room Air 03/10/17 00:00 98.9 72 20 122/69 98 03/09/17 20:00 98.1 95 18 115/62 97 Room Air 03/09/17 16:11 98.1 18 115/58 97 Room Air Intake and Output 03/09/17 03/10/17 18:59 06:59 Intake Total 1987.5 ml 1855 ml Output Total 50 ml Balance 1937.5 ml 1855 ml Intake Oral 300 ml 150 ml IV Total 1687.5 ml 1705 ml Output Emesis 50 ml # Voids 2 3 Laboratory Tests 03/10/17 05:20: White Blood Count 5.9, Red Blood Count 2.91L, Hemoglobin 9.2L, Hematocrit 27.6L , Mean Corpuscular Volume 95, Mean Corpuscular Hemoglobin 31.7H, Mean Corpuscular Hemoglobin Concent 33.5, Red Cell Distribution Width 11.1L, Platelet Count 201, Mean Platelet Volume 7.6, Neutrophils (%) (Auto) 42.4L, Lymphocytes (%) (Auto) 48.8H, Monocytes (%) (Auto) 5.8, Eosinophils (%) (Auto) 2.0, Basophils (%) (Auto) 0.9, Sodium Level 139, Potassium Level 3.6, Chloride Level 105, Carbon Dioxide Level 21, Anion Gap 13, Blood Urea Nitrogen 6L, Creatinine 0.7, Estimat Glomerular Filtration Rate > 60, Glucose Level 75, Calcium Level 8.2L, Iron Level 105, Total Iron Binding Capacity 174L, Percent Iron Saturation 60H, Unsaturated Iron Binding 69L Height (Feet): 5 Height (Inches): 5.00 Weight (Pounds): 116 Cardiovascular: normal rate Respiratory/Chest: lungs clear RAHBAN,KATHY Mar 10, 2017 16:06
[2017-03-10] MEDS ORDERED: Tubing IV Secondary IV ONE (16:10)
--- NOTE | 2017-03-11 03:27 | Consultation ---
DATE OF CONSULTATION: 03/10/2017 GASTROENTEROLOGY CONSULTATION CHIEF COMPLAINT: I was asked to see this patient by Dr. Jesús Rodriguez for evaluation of abdominal symptoms. HISTORY OF PRESENT ILLNESS: The patient is a 21-year-old pleasant woman who has had a six-day history of nausea and vomiting. She also has some abdominal pain, which the patient has been having for the past four days. She states about two weeks ago she had some urinary tract infections and she is in mid cycle right now. She has had chronic urinary tract infection recurrences. She had some nausea, vomiting, and urinary tract infection. She does have some pyrosis and has never had endoscopy or colonoscopy. PAST MEDICAL HISTORY: Otherwise negative. MEDICATIONS: See chart for details. FAMILY HISTORY: Noncontributory. SOCIAL HISTORY: The patient does not smoke or drink alcohol. She is a student. REVIEW OF SYSTEMS: Otherwise negative. PHYSICAL EXAMINATION: GENERAL: A well-developed and well-nourished young white woman, seen in her room. HEENT: Normocephalic and atraumatic. Sclerae anicteric. Oropharynx clear. NECK: Supple. CHEST: Clear to auscultation. CARDIOVASCULAR: Revealed a regular rate. ABDOMEN: Soft. EXTREMITIES: Revealed no edema. LABORATORY DATA: Noted. ASSESSMENT: This patient has acute symptoms of gastrointestinal distress. On evaluation, the patient has long-term GI issues. The patient has some functional bowel disorder at this time since the patient has nausea and vomiting. If symptoms significantly improve then oral diet can be continued and advanced. I have advised the patient to follow up as an outpatient. She should follow up with her previous physicians after discharge. RECOMMENDATIONS: 1. Push oral intake. 2. Follow up with primary, p.r.n. medications. 3. Possible outpatient followup with GI. Rosy Gant M.D. DR: SOPHIA JOB#: [id number] CC:
--- NOTE | 2017-03-11 13:14 | Discharge Summary ---
Discharge Summary Hospital Course Date of Admission Mar 08, 2017 at 02:44 Date of Discharge Mar 10, 2017 at 16:11 Admitting Diagnosis acute kidney failure HPI Beryl Farooq is a 21 year old female who was admitted on Mar 08, 2017 at 02:44 for Acute Kidney Failure Hospital Course [id number] Discharge Discharge Disposition Patient was discharged to Home (01) Discharge Diagnoses: Ofelia Santos NP Mar 11, 2017 13:14
--- NOTE | 2017-03-12 03:28 | Discharge Summary 2 SIG ---
DATE OF ADMISSION: 03/08/2017 DATE OF DISCHARGE: 03/10/2017 CONSULTANTS: 1. Cailin Emanuel M.D. 2. Chidi Salvador M.D. 3. Rosy Gant M.D. ATTENDING PHYSICIAN: Jesús Rodriguez M.D. BRIEF HOSPITAL COURSE: The patient is a 21-year-old female, who came to emergency room secondary to intractable nausea and vomiting. She has a history of recurrent urinary tract infections and was already seen by urologist and was prescribed Bactrim. However, symptoms continued with lower abdominal pain and vomiting. The patient presented to ED where on initial evaluation labs showed acute renal failure. Creatinine was elevated to 2.9. Urine WBC was 10 to 15 with +1 leukocyte esterase, and 0 to 2 RBC. She denied any previous history of kidney problems except kidney infection. Dr. Salvador was consulted. The patient was given IV hydration with IV saline. Random urine was 131. Urine creatinine of 90. Serum creatinine of 2.9. Dr. Emanuel was also consulted. The patient was started empirically with Rocephin. Urine culture did not isolate any growth; however, the patient has been on antibiotics prior to admission. Dr. Gant was consulted for evaluation of abdominal pain and assessed acute GI symptoms secondary to long-term GI issues and has some functional bowel disorder. Renal function improved, on IV hydration. IV hydration was eventually discontinued. The patient unable to take ciprofloxacin secondary to medication giving her severe migraines. The patient was given cefepime 500 mg b.i.d. for another 10 days to complete a full course of antibiotic treatment and was advised need to follow up with PMD upon discharge. Rx prescription was given. The patient verbalized understanding. FINAL DIAGNOSES: 1. Acute renal failure. 2. Urinary tract infection/pyelonephritis. 3. Dehydration. Ryley Mirza M.D. I have been assigned to dictate discharge summary on this account and I was not involved in the patient's management. Ofelia Santos N.P. DR: HUSSAIN JOB#: [id number] CC: GREGORY
--- NOTE | 2017-03-12 13:40 | Diagnostic Imaging Report ---
Indications: Renal failure Technique: Transabdominal real-time grayscale and duplex Doppler imaging of the kidneys, retroperitoneum, and urinary bladder was performed Findings: Comparison: None Right kidney measures 9.8 cm in length. Normal cortical thickness. Mildly increased cortical echogenicity.. No stones, other focal lesions, hydronephrosis, or obvious perinephric abnormalities. Left kidney measures 10 cm in length. Normal cortical thickness. Mildly increased cortical echogenicity.. No stones, other focal lesions, hydronephrosis, or obvious perinephric abnormalities. The intrahepatic portion of inferior vena cava is patent and normal caliber. The urinary bladder is distended without obvious abnormality. IMPRESSION: Bilateral normal size, mildly echogenic kidneys suggesting medical renal disease, nonspecific No evidence of obstruction
== END 2017-03-10 16:11 | disposition home or self-care (01) | DRG 690 ==
LOC: ENRESERVDT → ENRESERVTM → EMR 01:45 → 4E 02:44 → EDBEDREQ 05:55 → 4E 12:19
DX: N12 Tubulo-interstitial nephritis, not specified as acute or chronic (principal); N17.9 Acute kidney failure, unspecified; E86.0 Dehydration; Z88.8 Allergy status to other drugs, medicaments and biological substances
CPT/HCPCS: 36415; 76775; 80048; 80053; 81003; 81025; 82570; 83540; 83550; 83690; 84300; 85025; 87086; J2405